=== PATIENT | female | born 1995 | race Caucasian/White ===

== ENCOUNTER 2020-11-16 06:53 | Emergency (ER) | payer OTHER, SELFPAY ==
--- NOTE | ~2020-11-16 | XR_ITS ---
EXAMINATION: XR hand LT min 3V, XR finger 1st LT min 2V EXAM DATE: 11/16/2020 07:42 INDICATION: Left hand, 1st finger injury, pain, initial encounter. TECHNIQUE: Left hand frontal, lateral and oblique projections obtained and reviewed. Left 1st finger frontal and lateral projections. FINDINGS: Left metacarpal bones are unremarkable. There are no acute hand, 1st finger fractures or d islocations identified. There is no subcutaneous gas. The soft tissue is unremarkable. There are no radiopaque foreign bodies. IMPRESSION: Left hand, 1st finger exam without acute osseous findings. Reviewed, dictated and finalized at location A. IMPRESSION: Left hand, 1st finger exam without acute osseous findings.
[2020-11-16 07:11] VITALS: PULSE 93; RESP 18; TEMP 36.6; O2SAT 100
[2020-11-16 07:58] VITALS: BP 107/85; PULSE 66; RESP 16; TEMP 36.6; O2SAT 100
[2020-11-16 08:37] VITALS: BP 112/71; PULSE 56; RESP 16; O2SAT 100
[2020-11-16] MEDS: ACETAMINOPHEN 325 MG TABLET 650 MG PO (08:37)
--- NOTE | 2020-11-16 08:38 | ED.GENADULT ---
HPI - General Adult General Chief complaint: Extremity Injury, Upper Stated complaint: Left thumb injury Time Seen by Provider: 11/16/20 08:01 Source: patient History of Present Illness HPI narrative: Patient is a 25 y/o female complaining of left thumb pain for last 8-9 hours after she accidentally had her thumb caught in car door. She describe her pain as throbbing. There is no alleviating or exacerbating factor. Pain is worse since initial injury. Of note, she is also 16 week . She denies any problem with her . Related Data Home Medications Medication Instructions Recorded Confirmed No Home Medications 11/16/20 11/16/20 Allergies Allergy/AdvReac Type Severity Reaction Status Date / Time No Known Allergies Allergy Verified 11/16/20 08:06 Review of Systems Review of Systems: All systems reviewed & are unremarkable except as noted in HPI and below Constitutional: Constitutional: Denies fever(s) Genitourinary: Genitourinary: Denies abnormal vaginal bleeding, Denies dysuria and Denies pelvic pain Musculoskeletal: Musculoskeletal: Reports as per HPI, Reports back pain and Reports other (left thumb pain) Exam Const: General: no acute distress and well developed Orientation/consciousness: oriented to person, oriented to place, oriented to time and patient oriented x3 HENMT: Head: normocephalic Ears: external ears normal General nose exam: Normal external nose present Skin: General skin exam: normal color, turgor normal and ecchymosis (tip of left thumb) Nails: other (subungual hematoma left thumb) Neuro: General: oriented to person, oriented to place, oriented to time and patient oriented x3 Cognition (Neuro): normal cognition Extrem: General: normal to inspection, full ROM and no pedal edema Psych: Appearance: grossly normal Mental Status: mental status grossly normal Affect: normal affect Course Reevaluation(s) Reevaluation #1: Offered patient nail trephination to release blood under nail. However, patient declined and wanted to wait for blood to dissipate spontaneously. Date: 11/16/20 Time: 08:40 Vital Signs Vital signs: Vital Signs Temperature 36.6 C 11/16/20 07:11 Pulse Rate 93 11/16/20 07:11 Respiratory Rate 18 11/16/20 07:11 Pulse Oximetry 100 11/16/20 07:11 Temperature 36.6 C 11/16/20 07:58 Pulse Rate 66 11/16/20 08:57 Respiratory Rate 16 11/16/20 08:57 Blood Pressure 105/68 11/16/20 08:57 Pulse Oximetry 99 11/16/20 08:57 Medical Decision Making Vital Signs Vital Signs: Vital Signs Temperature 36.6 C 11/16/20 07:11 Pulse Rate 93 11/16/20 07:11 Respiratory Rate 18 11/16/20 07:11 Pulse Oximetry 100 11/16/20 07:11 Temperature 36.6 C 11/16/20 07:58 Pulse Rate 66 11/16/20 08:57 Respiratory Rate 16 11/16/20 08:57 Blood Pressure 105/68 11/16/20 08:57 Pulse Oximetry 99 11/16/20 08:57 Discharge Plan Discharge Clinical Impression: Subungual hematoma of finger of left hand Qualifiers: Encounter type: initial encounter Qualified Code(s): S60.10XA - Contusion of unspecified finger with damage to nail, initial encounter Contusion of left thumb Qualifiers: Encounter type: initial encounter Damage to nail status: with damage Qualified Code(s): S60.112A - Contusion of left thumb with damage to nail, initial encounter Patient Disposition: Home, Self-Care Condition: Stable Instructions: Subungual Hematoma (ED) Prescriptions: No Action No Home Medications RF: 0 Follow-up/Referrals: PHYSICIAN,PROPELLER ENGINEER [Primary Care Provider] -
[2020-11-16 08:57] VITALS: BP 105/68; PULSE 66; RESP 16; O2SAT 99
--- NOTE | 2020-11-26 23:43 | PC.NURSE ---
Noted that injury is to left thumb, no injury to right.
--- NOTE | 2020-12-02 13:14 | PC.NURSE ---
LATE ENTRY This note is being entered to document information to the patient's record. The following information was incorrectly entered on [11/16/2020], by [Janki Pollard RN]. Injury was to left thumb and not as incorrectly entered as the right thumb.
== END 2020-11-16 08:58 | disposition home or self-care (01) ==
PROVIDERS: Emergency Provider Emergency Medicine
DX: O9A.212 Injury, poisoning and certain other consequences of external causes complicating pregnancy, second trimester (principal); S60.112A Contusion of left thumb with damage to nail, initial encounter; Z3A.16 16 weeks gestation of pregnancy; W23.0XXA Caught, crushed, jammed, or pinched between moving objects, initial encounter
CPT/HCPCS: 29130; 73130; 73140; 99283; A9270